=== PATIENT | male | born 1965 | race Caucasian/White ===

== ENCOUNTER 2017-03-12 11:44 | Emergency (ER) | payer OTHER ==
--- NOTE | ~2017-03-12 | EKG ---
PATIENT: CHRISTI SANTANA UNIT #: [id number] Ventricular Rate: 85 BPM Atrial Rate: 85 BPM P-R Interval: 158 ms QRS Duration: 82 ms Q-T Interval: 366 ms QTC Calculation(Bezet): 435 ms P [place]: 68 degrees Calculated R [place]: 90 degrees Calculated T [place]: 66 degrees Diagnosis Line: Normal sinus rhythm with sinus arrhythmia Diagnosis Line: Rightward axis Diagnosis Line: Otherwise normal ECG Baseline wander Diagnosis Line: No previous ECGs available Diagnosis Line: Confirmed by ANSHU YU MD ([id number]) on 03/13/2017 Diagnosis Line: 7:34:27 PM INTERPRETING MD: GIGI ALEJO
--- NOTE | ~2017-03-12 | CR72 ---
[facility]. [facility] A Service of [facility] RADIOLOGY TEXT RESULTS PATIENT: CHRISTI SANTANA LOCATION: SED : 67 UNIT #: [id number] AGE: [address]: Aryan Tomas MD SEX: M ORDER DR: [id number] [address] [address] [id number] MR#: [id number] Acc #: [id number] NAME: CHRISTI SANTANA : 1965 SEX: M STUDY DATE/TIME: 03/12/2017 11:54 UNIT: SED ROOM: STUDY DESCRIPTION: CR Chest Single View Portable Attending Physician: Aryan Tomas M.D. Ordering Physician: Aryan Tomas M.D. Primary Care Physician: No Primary Care Physician MEDICAL IMAGING REPORT This report is preliminary unless electronic signature is present. EXAM Portable chest, 03/12/17 COMPARISON STUDIES 11/12/13 INDICATIONS Chest pain since last night. 03/12 compared with 11/12/2013. A portable view of the chest was obtained. Heart size and vascularity is normal. Lungs are clear. The bones are unremarkable. The lungs are slightly hyperinflated IMPRESSION No active disease. Dictated by... Cipriano Armendariz M.D. THIS IS AN ELECTRONICALLY VERIFIED REPORT Cipriano Armendariz M.D. at 03/13/2017 7:07 AM JUSTIN/jamee TD: 03/12/2017 20:46 JOB #: [id number] MEDICAL IMAGING REPORT Page 1 of 1
[~2017-03-12 11:44] MED LIST: ADVAIR 100-501 EAC1 IH; ALBUTEROL17 GM INH; PREDNISONE PO; ULTRAM PO
[2017-03-12 12:10] LABS: BASOPHIL# 0.1 X10e3 (0-0.3); EOSINOPHIL# 0.1 X10e3 (0-0.7); EOSINOPHIL% 1.3 % (0.0-7.0); HEMATOCRIT 45.5 % (38.0-50.0); HEMOGLOBIN 15.6 gm/dL (13.0-16.0); LYMPHOCYTE# 1.6 X10e3 (1.0-3.5); LYMPHOCYTE% 17.1 % (17.0-45.0); MEAN CORPUSCULAR HEMOGLOBIN 34.7 PG (28-34); MEAN CORPUSCULAR HGB CONC 34.3 g/dL (30-36); MEAN PLATELET VOLUME 7.4 FL (6.5-11.5); MONOCYTE# 1.1 X10e3 (0-1.0); NEUTROPHIL# 6.7 X10e3 (1.5-7.1); NEUTROPHIL% 69.6 % (40-75); PLATELET COUNT 229 X10e3 (140-420); RED BLOOD COUNT 4.51 X10e (3.90-5.60); WHITE BLOOD COUNT 9.6 X10e3 (4.0-10.5)
[2017-03-12 12:11] LABS: DIFF IND NO
[2017-03-12 12:20] LABS: INR 0.9; PROTHROMBIN TIME (PATIENT) 10.4 SECONDS (9.5-12.4)
[2017-03-12 12:25] LABS: POC - CKMB <1.0 ng/mL (0.0-7.9); POC - MYOGLOBIN 37.7 ng/mL (0.0-169.0)
[2017-03-12 12:26] LABS: POC - TROPONIN <0.05 ng/mL (<=0.05)
[2017-03-12 12:27] LABS: PARTIAL THROMBOPLASTIN TIME 25.1 SECONDS (25.6-38.1)
[2017-03-12 12:30] LABS: ALBUMIN SERUM 3.6 g/dL (3.5-5.0); BILIRUBIN, DIRECT 0.1 mg/dL (0.0-0.2); BILIRUBIN,INDIRECT 0.5 mg/dL (0.0-0.9); BILIRUBIN,TOTAL 0.6 mg/dL (0.2-2.0); BUN/CREATININE RATIO 6.66; CREATININE SERUM 0.9 mg/dL (0.6-1.4); GLOM FILT RATE Estimated 98.5 mL/min (>60); POTASSIUM 4.6 mmol/L (3.5-5.1)
[2017-03-12 14:33] LABS: POC - CKMB <1.0 ng/mL (0.0-7.9); POC - MYOGLOBIN 33.7 ng/mL (0.0-169.0); POC - TROPONIN <0.05 ng/mL (<=0.05)
== END 2017-03-12 15:18 | disposition home or self-care (01) ==
LOC: SED 11:44
PROVIDERS: Emergency Medicine
DX: J44.9 Chronic obstructive pulmonary disease, unspecified (principal); F17.200 Nicotine dependence, unspecified, uncomplicated; Z91.030 Bee allergy status
CPT/HCPCS: 36415; 71010; 80048; 80076; 82553; 83874; 84484; 85025; 85610; 85730; 93005; 99285